=== PATIENT | female | born 1990 | race Two or more races ===

== ENCOUNTER 2018-12-12 08:53 | Inpatient (IN) | payer SELFPAY ==
[~2018-12-12] VITALS: Ht 147.3 cm; Wt 63.0 kg
[2018-12-12] MEDS: IV NORMAL SALINE 1000ML BAG 1,000 ML IV SCH ×3 (09:16→20:44)
[2018-12-12] MEDS ORDERED: ONDANSETRON PF 4 MG/2 ML VIAL. IV PRN (09:30)
[2018-12-12] MEDS ORDERED: 0.9 % SODIUM CHLORIDE 10 ML DISP.SYRIN. IV PRN ×2 (09:30→17:30)
[2018-12-12] MEDS ORDERED: IBUPROFEN 400 MG TABLET. PO PRN (09:30)
[2018-12-12] MEDS ORDERED: ACETAMINOPHEN 325 MG TABLET. PO PRN ×2 (09:30→17:30)
[2018-12-12] MEDS ORDERED: LIDOCAINE 1% PF 30 ML VIAL. INJ PRN (09:30)
[2018-12-12] MEDS ORDERED: OXYTOCIN 30 UNIT/500 ML PREMIX 500 ML IV PRN ×3 (09:30→17:30)
[2018-12-12 09:34] VITALS: BP 126/80
[2018-12-12] MEDS ORDERED: PNV1TABL25 PO (09:34)
--- NOTE | 2018-12-12 09:39 | PDOC1 ---
OB - History Hx of Present Care: Good Care Ultrasounds: Normal mid trimester US Obstetrical Complications: None Medical Complications: None Past Family/Social History * Past Medical, Surgical, Family and Obstetric Histories reviewed from chart. Rubella: Immune RPR/VDRL: Negative GBS Status: Negative HBsAG: Negative OB - Chief Complaint & HPI Date of Admission: Date of Admission: Dec 12, 2018 at 08:53 Chief Complaint/History : 2 Para: 1 EGA: 38 Reason for admission: active labor, rupture of membranes Admission Nurse Assessment Rev: Yes OB - Admission Exam Physical Exam HEENT: Normal Heart: Regular Rate Lungs: Clear Abdomen: Gravid, Non tender, Soft Extremities: Edema Reflexes: Normal Cervical Dilatation: 1cm Effacement: 75% Station: -3 Membranes: Ruptured Amniotic Fluid: Clear Heart Rate: Normal Accelerations: Accelerations Present Decelerations: No decelerations Contractions on Admission: 6-10 Minutes Apart Intensity: Moderate Text A: 38 wks IUP SROM Active labor P: Admit labor management. JONATHAN MCNALLY Jr, MD Dec 12, 2018 09:38
[2018-12-12 09:58] LABS: BILIRUBIN,URINE NEGATIVE (NEG); CLARITY,URINE CLEAR; COLOR,URINE YELLOW; NITRITE,URINE NEGATIVE (NEG); PH,URINE 6.5; PROTEIN,URINE NEGATIVE (NEG-TRACE); UROBILINOGEN,URINE 0.2 mg/dL (0.2 mg/dL)
[2018-12-12 09:58] LABS: BASO % 0 % (0-3); EOS # 0.5 x10^3/uL (0.0-0.7); EOS % 5 % (0-3); HEMATOCRIT 41.2 % (36.0-47.0); LYMPH # 1.7 x10^3/uL (1.0-4.8); LYMPH % 15 % (24-48); MEAN CORPUSCULAR HEMOGLOBIN 30 pg (25-35); MEAN CORPUSCULAR HGB CONC 34 g/dL (31-37); MEAN CORPUSCULAR VOLUME 88 fL (79-100); MONO # 0.8 x10^3/uL (0.0-1.1); MONO % 7 % (0-9); NEUT # 8.3 x10^3/uL (1.8-7.7); NEUT % 73 % (31-73); PLATELET COUNT 214 x10^3/uL (140-400); RED BLOOD COUNT 4.69 x10^6/uL (3.50-5.40); WHITE BLOOD COUNT 11.3 x10^3/uL (4.0-11.0)
[2018-12-12 10:15] LABS: BACTERIA,URINE FEW /HPF (0-FEW); SQUAMOUS EPITHELIAL CELL,UR FEW /LPF
[2018-12-12] MEDS: IV RINGERS,LACTATED 1000ML 1,000 ML IV PRN ×2 (10:40→12:48)
[2018-12-12] MEDS: fentaNYL PF VIAL 100 MCG/2 ML VIAL IV PRN ×3 (14:00→17:11)
--- NOTE | 2018-12-12 17:26 | PDOC ---
VAGINAL DELIVERY DATE DATE: 12/12/18 TIME: 17:25 : 2 Para: 2 EGA: 38 VAGINAL DELIVERY: VTX VACCUM ASSISTED: No PLACENTA: Spontaneous 11/22 SEX: Male WEIGHT Weight [2480 gm ] Nuchal Cord: No Amniotic Fluid: Clear PAIN: Natural EPISIOTOMY: No EXTENSION: Yes (2nd degree midline laceration and Left periurethral laceration) REPAIRED WITH 2-0 vicryl and 3-0 chromic EBL 300 ml COMPLICATIONS none CONDITION pt. stable Signs of Intrauterine Infectio: None Shoulder Dystocia: No JONATHAN MCNALYL Jr, MD Dec 12, 2018 17:26
[2018-12-12] MEDS ORDERED: MAG HYDROX/ALUMINUM HYD/SIMETH 30 ML ORAL.SUSP PO PRN (17:30)
[2018-12-12] MEDS ORDERED: BENZOCAINE 20% TOPICAL AEROSOL SPRAY 57GM CAN. TP PRN (17:30)
[2018-12-12] MEDS ORDERED: diphenhydrAMINE HCL 25 MG CAPSULE PO PRN (17:30)
[2018-12-12] MEDS ORDERED: MMR per PROTOCOL. MC PRN (17:30)
[2018-12-12] MEDS ORDERED: SIMETHICONE 80 MG TAB.CHEW PO PRN (17:30)
[2018-12-12] MEDS ORDERED: MAGNESIUM HYDROXIDE 2,400 MG/30 ML ORAL.SUSP. PO PRN (17:30)
[2018-12-12] MEDS ORDERED: ZOLPIDEM 5 MG TABLET. PO PRN (17:30)
[2018-12-12] MEDS ORDERED: HYDROCORTISONE 1% TOPICAL OINTMENT 30GM TUBE. TP PRN (17:30)
[2018-12-12] MEDS ORDERED: PHENYLEPH/MINERAL OIL/PETROLAT RECTAL OINTMENT TUBE. RC PRN (17:30)
[2018-12-12] MEDS ORDERED: oxyCODONE/APAP 5/325 1 TAB TABLET PO PRN (17:30)
[2018-12-12] MEDS: IBUPROFEN 400 MG TABLET. PO PRN (19:50)
[2018-12-12 20:35] VITALS: BP 98/57
[2018-12-12] MEDS: DOCUSATE SODIUM 100 MG CAPSULE. PO PRN (21:14)
[2018-12-13 06:05] VITALS: BP 94/52
[2018-12-13 06:05] LABS: BASO % 0 % (0-3); EOS # 0.1 x10^3/uL (0.0-0.7); EOS % 0 % (0-3); HEMATOCRIT 33.5 % (36.0-47.0); HEMOGLOBIN 11.4 g/dL (12.0-15.5); LYMPH # 1.8 x10^3/uL (1.0-4.8); LYMPH % 11 % (24-48); MEAN CORPUSCULAR HEMOGLOBIN 30 pg (25-35); MEAN CORPUSCULAR HGB CONC 34 g/dL (31-37); MEAN CORPUSCULAR VOLUME 89 fL (79-100); MONO # 1.3 x10^3/uL (0.0-1.1); MONO % 8 % (0-9); NEUT % 81 % (31-73); PLATELET COUNT 186 x10^3/uL (140-400); RED BLOOD COUNT 3.76 x10^6/uL (3.50-5.40); RED CELL DISTRIBUTION WIDTH 13.9 % (11.5-14.5); WHITE BLOOD COUNT 17.3 x10^3/uL (4.0-11.0)
[2018-12-13] MEDS: IBUPROFEN 400 MG TABLET. PO PRN ×2 (06:08→20:21)
[2018-12-13] MEDS ORDERED: FERROUS SULFATE 325 MG TABLET. PO SCH (08:00)
--- NOTE | 2018-12-13 08:35 | PDOC ---
OB Progress Note Date of Service 12/13/18 Time of Evaluation 0835 Notes Pt. feeling well. Pain controlled. No complaints. Lab Laboratory Tests Test 12/12/18 09:15 12/12/18 09:45 12/13/18 05:30 Urine Collection Type Unknown Urine Color Yellow Urine Clarity Clear Urine pH 6.5 Urine Specific [place] <=1.005 Urine Protein Negative mg/dL (NEG-TRACE) Urine Glucose (UA) Negative mg/dL (NEG) Urine Ketones (Stick) Negative mg/dL (NEG) Urine Blood Negative (NEG) Urine Nitrite Negative (NEG) Urine Bilirubin Negative (NEG) Urine Urobilinogen Dipstick 0.2 mg/dL (0.2 mg/dL) Urine Leukocyte Esterase Moderate (NEG) Urine RBC 1-2 /HPF (0-2) Urine WBC 11-20 /HPF (0-4) Urine Squamous Epithelial Cells Few /LPF Urine Bacteria Few /HPF (0-FEW) White Blood Count 11.3 x10^3/uL (4.0-11.0) 17.3 x10^3/uL (4.0-11.0) Red Blood Count 4.69 x10^6/uL (3.50-5.40) 3.76 x10^6/uL (3.50-5.40) Hemoglobin 14.0 g/dL (12.0-15.5) 11.4 g/dL (12.0-15.5) Hematocrit 41.2 % (36.0-47.0) 33.5 % (36.0-47.0) Mean Corpuscular Volume 88 fL (79-100) 89 fL (79-100) Mean Corpuscular Hemoglobin 30 pg (25-35) 30 pg (25-35) Mean Corpuscular Hemoglobin Concent 34 g/dL (31-37) 34 g/dL (31-37) Red Cell Distribution Width 14.0 % (11.5-14.5) 13.9 % (11.5-14.5) Platelet Count 214 x10^3/uL (140-400) 186 x10^3/uL (140-400) Neutrophils (%) (Auto) 73 % (31-73) 81 % (31-73) Lymphocytes (%) (Auto) 15 % (24-48) 11 % (24-48) Monocytes (%) (Auto) 7 % (0-9) 8 % (0-9) Eosinophils (%) (Auto) 5 % (0-3) 0 % (0-3) Basophils (%) (Auto) 0 % (0-3) 0 % (0-3) Neutrophils # (Auto) 8.3 x10^3/uL (1.8-7.7) 14.0 x10^3/uL (1.8-7.7) Lymphocytes # (Auto) 1.7 x10^3/uL (1.0-4.8) 1.8 x10^3/uL (1.0-4.8) Monocytes # (Auto) 0.8 x10^3/uL (0.0-1.1) 1.3 x10^3/uL (0.0-1.1) Eosinophils # (Auto) 0.5 x10^3/uL (0.0-0.7) 0.1 x10^3/uL (0.0-0.7) Basophils # (Auto) 0.0 x10^3/uL (0.0-0.2) 0.0 x10^3/uL (0.0-0.2) Treponema pallidum Antibody Nonreactive (Nonreactive) Laboratory Tests Test 12/12/18 09:15 12/12/18 09:45 12/13/18 05:30 Urine Collection Type Unknown Urine Color Yellow Urine Clarity Clear Urine pH 6.5 Urine Specific [place] <=1.005 Urine Protein Negative mg/dL (NEG-TRACE) Urine Glucose (UA) Negative mg/dL (NEG) Urine Ketones (Stick) Negative mg/dL (NEG) Urine Blood Negative (NEG) Urine Nitrite Negative (NEG) Urine Bilirubin Negative (NEG) Urine Urobilinogen Dipstick 0.2 mg/dL (0.2 mg/dL) Urine Leukocyte Esterase Moderate (NEG) Urine RBC 1-2 /HPF (0-2) Urine WBC 11-20 /HPF (0-4) Urine Squamous Epithelial Cells Few /LPF Urine Bacteria Few /HPF (0-FEW) White Blood Count 11.3 x10^3/uL (4.0-11.0) 17.3 x10^3/uL (4.0-11.0) Red Blood Count 4.69 x10^6/uL (3.50-5.40) 3.76 x10^6/uL (3.50-5.40) Hemoglobin 14.0 g/dL (12.0-15.5) 11.4 g/dL (12.0-15.5) Hematocrit 41.2 % (36.0-47.0) 33.5 % (36.0-47.0) Mean Corpuscular Volume 88 fL (79-100) 89 fL (79-100) Mean Corpuscular Hemoglobin 30 pg (25-35) 30 pg (25-35) Mean Corpuscular Hemoglobin Concent 34 g/dL (31-37) 34 g/dL (31-37) Red Cell Distribution Width 14.0 % (11.5-14.5) 13.9 % (11.5-14.5) Platelet Count 214 x10^3/uL (140-400) 186 x10^3/uL (140-400) Neutrophils (%) (Auto) 73 % (31-73) 81 % (31-73) Lymphocytes (%) (Auto) 15 % (24-48) 11 % (24-48) Monocytes (%) (Auto) 7 % (0-9) 8 % (0-9) Eosinophils (%) (Auto) 5 % (0-3) 0 % (0-3) Basophils (%) (Auto) 0 % (0-3) 0 % (0-3) Neutrophils # (Auto) 8.3 x10^3/uL (1.8-7.7) 14.0 x10^3/uL (1.8-7.7) Lymphocytes # (Auto) 1.7 x10^3/uL (1.0-4.8) 1.8 x10^3/uL (1.0-4.8) Monocytes # (Auto) 0.8 x10^3/uL (0.0-1.1) 1.3 x10^3/uL (0.0-1.1) Eosinophils # (Auto) 0.5 x10^3/uL (0.0-0.7) 0.1 x10^3/uL (0.0-0.7) Basophils # (Auto) 0.0 x10^3/uL (0.0-0.2) 0.0 x10^3/uL (0.0-0.2) Treponema pallidum Antibody Nonreactive (Nonreactive) Medications Current Medications Sodium Chloride (Normal Saline Flush) 3 ml QSHIFT PRN IV AFTER MEDS AND BLOOD DRAWS; Start 12/12/18 at 09:30 Ringer's Solution 1,000 ml @ 125 mls/hr Q8H PRN IV PER PROTOCOL Last administered on 12/12/18at 12:48; Start 12/12/18 at 09:30 Sodium Chloride 1,000 ml @ 125 mls/hr Q8H IV ; Start 12/12/18 at 09:16 Fentanyl Citrate (Fentanyl 2ml Vial) 100 mcg PRN Q1HR PRN IV Severe pain Last administered on 12/12/18at 17:11; Start 12/12/18 at 09:30 Acetaminophen (Tylenol) 650 mg PRN Q6HRS PRN PO MILD PAIN / TEMP; Start 12/12/18 at 09:30; Stop 12/12/18 at 17:42; Status DC Ondansetron HCl (Zofran) 4 mg PRN Q4HRS PRN IV NAUSEA/VOMITING; Start 12/12/18 at 09:30 Lidocaine HCl (Xylocaine 1% Pf 30ml Vial) 30 ml 1X PRN PRN INJ SEE COMMENTS Last administered on 12/12/18at 17:12; Start 12/12/18 at 09:30; Stop 12/14/18 at 09:29 Oxytocin/Sodium Chloride 500 ml @ 0 mls/hr CONT PRN IV SEE I/O RECORD Last administered on 12/12/18at 10:39; Start 12/12/18 at 09:30; Stop 12/12/18 at 17:42; Status DC Oxytocin/Sodium Chloride 500 ml @ 0 mls/hr CONT PRN PRN IV Post delivery bleeding; Start 12/12/18 at 09:30; Stop 12/12/18 at 17:42; Status DC Ibuprofen (Motrin) 800 mg PRN Q6HRS PRN PO PAIN; Start 12/12/18 at 09:30; Stop 12/12/18 at 17:42; Status DC Sodium Chloride (Normal Saline Flush) 10 ml QSHIFT PRN IV AFTER MEDS AND BLOOD DRAWS; Start 12/12/18 at 17:30 Oxytocin/Sodium Chloride 500 ml @ 62.5 mls/hr CONT PRN IV SEE I/O RECORD; Start 12/12/18 at 17:30; Stop 12/13/18 at 01:29; Status DC Acetaminophen (Tylenol) 650 mg PRN Q6HRS PRN PO MILD PAIN / TEMP; Start 12/12/18 at 17:30 Ibuprofen (Motrin) 800 mg PRN Q8HRS PRN PO INFLAMMATION/PAIN PREVENTION Last administered on 12/13/18at 06:08; Start 12/12/18 at 17:30 Docusate Sodium (Colace) 100 mg PRN BID PRN PO HARD STOOLS Last administered on 12/12/18at 21:14; Start 12/12/18 at 17:30 Magnesium Hydroxide (Milk Of Magnesia) 2,400 mg PRN DAILY PRN PO CONSTIPATION; Start 12/12/18 at 17:30 Al Hydroxide/Mg Hydroxide (Mylanta Plus Xs) 30 ml PRN Q4HRS PRN PO HEARTBURN / GAS; Start 12/12/18 at 17:30 Simethicone (Gas-X) 80 mg PRN AFTMEALHC PRN PO GAS / BLOATING; Start 12/12/18 at 17:30 Diphenhydramine HCl (Benadryl) 25 mg PRN Q6HRS PRN PO ITCHING; Start 12/12/18 at 17:30 Benzocaine (Americaine) 1 spray PRN QID PRN TP TOPICAL PAIN Last administered on 12/12/18at 19:50; Start 12/12/18 at 17:30 Phenyleph/Shark Oil/Min Oil/Petrol (Preparation H) 1 [place] PRN QID PRN RC RECTAL PAIN; Start 12/12/18 at 17:30 Hydrocortisone (Cortaid) 1 valencia PRN QID PRN TP PERINEAL PAIN; Start 12/12/18 at 17:30 Ferrous Sulfate (Feosol) 325 mg BIDWMEALS PO ; Start 12/13/18 at 08:00 Zolpidem Tartrate (Ambien) 5 mg PRN QHS PRN PO INSOMNIA, MAY REPEAT X1; Start 12/12/18 at 17:30 Info (Do NOT chart on this placeholder) 1 ea 1X PRN PRN MC SEE COMMENTS; Start 12/12/18 at 17:30 Info (Do NOT chart on this placeholder) 1 ea 1X PRN PRN MC SEE COMMENTS; Start 12/12/18 at 17:30 Oxycodone/ Acetaminophen (Percocet 5/325) 2 tab PRN Q4HRS PRN PO MODERATE PAIN, SEVERE PAIN; Start 12/12/18 at 17:30 Active Scripts Active Reported Tablet (Pnv Cmb#95/Ferrous Fumarate/Fa) Unknown Strength Tablet Unknown Dose PO DAILY Exam Abd: soft, non tender, fundus firm Assessment PPD#1 s/p Plan of Care: Continue current Tx, Mgmt JONATHAN MCNALLY Jr, MD Dec 13, 2018 08:35
[2018-12-13 09:02] VITALS: BP 98/60
[2018-12-13 10:18] LABS: % BANDS 2 % (0-9); % LYMPHS 9 % (24-48); % MONOS 7 % (0-10); % SEGS 82 % (35-66)
[2018-12-13 10:19] LABS: PLT ESTIMATE ADEQUATE (ADEQUATE)
[2018-12-13 15:25] VITALS: BP 99/65
[2018-12-13 20:15] VITALS: BP 118/75
[2018-12-13] MEDS: DOCUSATE SODIUM 100 MG CAPSULE. PO PRN (20:21)
[2018-12-14 04:30] VITALS: BP 115/66
--- NOTE | 2018-12-14 08:39 | PDOC3 ---
OB DISCHARGE SUMMARY DATE OF ADMISSION: 12/12/18 DATE OF DISCHARGE: 12/14/18 REASON FOR ADMISSION: Onset of labor INTRAPARTUM PROCEDURES: Spontanous Vag Deliv DISCHARGE DIAGNOSIS: Term Delivered DISCHARGE INFORMATION: Activity (ad nimisha), Diet (regular), Instructions (pelvic rest x 6 wks) HOSPITAL COURSE Term gestation delivered vaginally without complications. JONATHAN MCNALLY Jr, MD Dec 14, 2018 08:39
[2018-12-14] MEDS ORDERED: IBUP-1027 PO (08:41)
--- NOTE | 2018-12-14 08:42 | DISCH ---
DISCHARGE INSTRUCTIONS Condition on Discharge Condition on Discharge: Stable Activity After Discharge Activity Instructions for Disc: Activity as tolerated Lifting Instructions after Dis: No heavy lifting Driving Instructions after Dis: Do not drive today Diet after Discharge Diet after Discharge: Regular Contacting the DRNadia after DC Call your doctor for: Concerns you may have Follow-Up Follow up with: Reg[facility] in 6 wks JONATHAN MCNALLY Jr, MD Dec 14, 2018 08:41
[2018-12-14 09:42] VITALS: BP 118/72
--- NOTE | 2018-12-14 11:30 | NUR ---
home instructions gone over quesyio with clinical cytopathologist at bedside. allquestions on home care answered and signed paper
== END 2018-12-14 13:44 | disposition home or self-care (01) | DRG 807 ==
LOC: OBSVTOIN 08:53 → INTOOBSV 08:53 → 3 SO LND 08:53 → 3 NORTH 20:15
PROVIDERS: ADMIT Obstetrics & Gynecology; ATTEND Obstetrics & Gynecology
PROC: 10E0XZZ Delivery of Products of Conception, External Approach (ICD-10-PCS; principal; 2018-12-12)
PROC: 0UQMXZZ Repair Vulva, External Approach (ICD-10-PCS; 2018-12-12)
DX: O71.5 Other obstetric injury to pelvic organs (principal); Z37.0 Single live birth; Z3A.38 38 weeks gestation of pregnancy; O70.1 Second degree perineal laceration during delivery
CPT/HCPCS: 36415; 81001; 85007; 85025; 86592; 86850; 86900; 86901; 87086; J2590; J3010; J7120; G0378